=== PATIENT | female | born 1970 | race Caucasian/White ===

== ENCOUNTER → 2023-05-21 06:31 | Day surgery (SDC) | payer OTHER, SELFPAY | LOC: GI 06:31 | PROVIDERS: ATTENDING PHYSICIAN Specialist | DX: K50.819 Crohn's disease of both small and large intestine with unspecified complications (principal); K63.89 Other specified diseases of intestine; D17.5 Benign lipomatous neoplasm of intra-abdominal organs | CPT/HCPCS: 45380; 88305 ==

== ENCOUNTER → 2024-07-17 14:29 | Outpatient (REF) | payer OTHER, SELFPAY | LOC: RAD 14:29 | PROVIDERS: ATTENDING PHYSICIAN Physician Assistant Medical | DX: Z01.419 Encounter for gynecological examination (general) (routine) without abnormal findings (principal) | CPT/HCPCS: 73030 ==

== ENCOUNTER → 2024-07-24 11:44 | Outpatient (REF) | payer OTHER, SELFPAY | LOC: WDC 11:44 | PROVIDERS: ATTENDING PHYSICIAN Physician Assistant Medical | DX: Z12.31 Encounter for screening mammogram for malignant neoplasm of breast (principal) | CPT/HCPCS: 77063; 77067 ==